=== PATIENT | female | born 1950 | race Hispanic/Latino ===

== ENCOUNTER 2019-12-24 06:25 | Observation (INO) | payer MEDICARE, OTHER ==
[2019-12-24 07:32] LABS: #Lymphocytes 2.4 thou/uL (1.20-3.40); #Monocytes 0.5 thou/uL (0.11-0.59); #Neutrophils 5.9 thou/uL (1.40-6.50); %Basophils 0.2 % (0.0-1.0); %Eosinophils 0.1 % (0.0-10.0); %Lymphocytes 27.1 % (21.0-51.0); %Monocytes 5.8 % (0.0-10.0); %Neutrophils 66.8 % (42.0-75.0); Hemoglobin 13.5 g/dL (12.0-16.0); Mean Corpuscular HGB CONC 33.9 g/dL (32.0-36.0); Mean Corpuscular Hemoglobin 32.8 pg (27.0-31.0); Mean Corpuscular Volume 96.8 fL (78.0-98.0); Mean Platelet Volume 6.9 fL (7.4-10.4); Platelet Count 333 thou/uL (130-400); RBC Distribution Width 11.9 % (11.5-14.5); White Blood Cell (WBC) Count 8.9 thou/uL (4.8-10.8)
[2019-12-24] MEDS ORDERED: Midazolam HCl 2 mg/2 ml Vial ONE (07:37)
--- NOTE | 2019-12-24 07:38 | CT ---
CT BRAIN: DAET: 12/24/2019. PROVIDED CLINICAL HISTORY: Dizziness. FINDINGS: No comparisons. The ventricular system appears normal in size and morphology. There is no evidence for intracranial hemorrhage or mass effect. The extracranial soft tissues and osseous structures dem onstrate no significant abnormality. IMPRESSION: No evidence for intracranial hemorrhage or mass effect. POS: OFF
[2019-12-24 07:51] LABS: Bilirubin Negative (Negative); Blood, Urine Negative (Negative); Clarity Clear (Clear); Glucose, Urine (Dipstick) Normal (Negative); Ketone, Urine Negative (Negative); Leukocyte Negative Leu/uL (Negative); Nitrite Negative (Negative); Protein, Urine (Dipstick) Negative (Neg-Trace); Specific Gravity, Urine 1.007 (1.002-1.036); Urobilinogen Normal mg/dL (Less than 2)
[2019-12-24 07:57] LABS: ALT (SGPT) 43 U/L (8-55); AST (SGOT) 32 U/L (5-34); Albumin 4.1 g/dL (3.4-4.8); Alkaline Phosphatase 62 U/L (40-110); Anion Gap 11 mmol/L (10-20); BUN (Urea Nitrogen) 10 mg/dL (9.8-20.1); Bilirubin, Total 0.4 mg/dL (0.2-1.2); Calc. Creatinine Clearance 0 mL/min (70-130); Calcium 8.5 mg/dL (7.8-10.44); Carbon Dioxide 25 mmol/L (23-31); Chloride 107 mmol/L (98-107); Estimated GFR-MDRD 61; Globulin 3.8 g/dL (2.4-3.5); Glucose 119 mg/dL (80-115); Potassium 3.7 mmol/L (3.5-5.1); Protein, Total 7.9 g/dL (6.0-8.3); Sodium 139 mmol/L (136-145)
--- NOTE | 2019-12-24 09:14 | PDOC.HHP ---
Hospitalist HPI - History of Present Illness Dizziness History of Present Illness: PCP: Saud Veloz The patient is a 69-year-old female with a past medical history significant for hypertension, hyperlipidemia, hypothyroidism that presents to the emergency department for the above complaint. The patient reports the acute onset of dizziness 4 days ago. She describes the dizziness as the room is spinning. She denies that she feels like she is going to "pass out". Exacerbated with moving her head, relieved by nothing. She went to [facility] at that time, was discharged home on Zofran. She reports that since then, her symptoms have improved, however, they have not resolved. She reports associated nausea and vomiting. Denies abdominal pain hematochezia, or hematemesis. She denies any recent trauma or falls. She denies first worse headache. She has no change in her home medications. She has no recent surgeries. She has no psychiatric history. She denies any recent URI symptoms, however, she does have chronic allergies. She does not take chronic NSAIDs or been on antibiotics recently. She has never had these symptoms before. Denies chest pain, heart palpitations, shortness of breath. Denies any urinary symptoms. ED Course: VITAL SIGNS Alivia Dec 24, 2019 06:26 CHALINO Jacob Daniel BP: 133/96, Pulse: 90, Resp: 22, Temp: 98.1 (Oral), O2 sat: 99 on (Room Air), Time: 12/24/2019 06:26. Medication administration: midazolam (PF) injection 2 mg IV Push Given 07:48 12/24/2019 Hospitalist ROS - Review of Systems Constitutional: denies: fever, chills Respiratory: denies: cough, shortness of breath, hemoptysis Cardiovascular: denies: chest pain, palpitations, edema Gastrointestinal: reports: nausea, vomiting. denies: abdominal pain, melena, hematochezia Genitourinary: denies: dysuria, hematuria Musculoskeletal: denies: neck pain Neurological: denies: weakness, change in speech, confusion All other systems reviewed; all pertinent +/- noted in HPI/Subj - Medication Medications: levothyroxine oral tablet : Strength - 75 mcg : ORAL Patient Dose: 50 mcg Oral once a day. losartan tablet : Strength - 25 mg : ORAL Patient Dose: 100 mg Oral once a day. pravastatin tablet : Strength - 20 mg : ORAL Patient Dose: 40 mg Oral once a day. ondansetron tablet,disintegrating : Strength - 8 mg : ORAL Patient Dose: 1 tab(s) Oral every 8 hours PRN. Allergies: Excedrin Migraine, Tylenol (tachycardia) Hospitalist History - Past Medical History Source: patient, RN notes reviewed Cardiac: reports: HTN, Hyperlipidemia Musculoskeletal: reports: Other (Osteopenia) Endocrine: reports: Hypothyroidism - Past Surgical History Past Surgical History: reports: Hysterectomy, Other (Left salpingectomy, cataract) - Social History Smoking Status: Never smoker Alcohol: reports: None Drugs: reports: none Living Situation: With Family Occupation: Lives with family. Retired. Fully independent. Activity level: independent ambulation - Exam General Appearance: NAD, awake alert Eye: PERRL, anicteric sclera Eye - other findings: No nystagmus ENT: normocephalic atraumatic, moist mucosa Neck: supple, symmetric, no JVD Heart: RRR, no murmur, no gallops, no rubs, normal peripheral pulses Respiratory: CTAB, no wheezes, no rales, no ronchi, normal chest expansion, no tachypnea Gastrointestinal: soft, non-distended, normal bowel sounds, no bruit, no guarding, no rigidity Extremities: no cyanosis, no edema Neurological: cranial nerve grossly intact Neurological - other findings: NIH 0, modified HINTS negative test of skew, negative nystagmus Musculoskeletal: normal tone, normal strength Psychiatric: normal affect, A&O x 3 (Bengali speaker) Hospitalist Results - Labs Result Diagrams: 12/24/19 07:16 12/24/19 07:16 Lab results: WBC 8.9 thou/uL (4.8-10.8) 12/24/19 07:16 Hgb 13.5 g/dL (12.0-16.0) 12/24/19 07:16 Hct 39.7 % (36.0-47.0) 12/24/19 07:16 MCV 96.8 fL (78.0-98.0) 12/24/19 07:16 Plt Count 333 thou/uL (130-400) 12/24/19 07:16 Neutrophils % 66.8 % (42.0-75.0) 12/24/19 07:16 Sodium 139 mmol/L (136-145) 12/24/19 07:16 Potassium 3.7 mmol/L (3.5-5.1) 12/24/19 07:16 Chloride 107 mmol/L (98-107) 12/24/19 07:16 Carbon Dioxide 25 mmol/L (23-31) 12/24/19 07:16 BUN 10 mg/dL (9.8-20.1) 12/24/19 07:16 Creatinine 0.91 mg/dL (0.6-1.1) 12/24/19 07:16 Glucose 119 mg/dL (80-115) H 12/24/19 07:16 Calcium 8.5 mg/dL (7.8-10.44) 12/24/19 07:16 Total Bilirubin 0.4 mg/dL (0.2-1.2) 12/24/19 07:16 AST 32 U/L (5-34) 12/24/19 07:16 ALT 43 U/L (8-55) 12/24/19 07:16 Alkaline Phosphatase 62 U/L (40-110) 12/24/19 07:16 Troponin I Less than 0.010 ng/mL (< 0.028) 12/24/19 07:16 Serum Total Protein 7.9 g/dL (6.0-8.3) 12/24/19 07:16 Albumin 4.1 g/dL (3.4-4.8) 12/24/19 07:16 Urine Ketones Negative mg/dL (Negative) 12/24/19 07:23 Urine Blood Negative (Negative) 12/24/19 07:23 Urine Nitrite Negative (Negative) 12/24/19 07:23 Ur Leukocyte Esterase Negative Shireen/uL (Negative) 12/24/19 07:23 - EKG Interpretation EK lead EKG interpreted by Emergency Department Physician at time of study, 12 lead EKG shows normal sinus rhythm, Rate (beats per minute): 68, with no ectopics, Conduction normal, ST segments normal, T waves normal, [place] normal, Clinical impression: Normal EKG. - Radiology Interpretation CT scan - head Status: report reviewed by me Additional Comment: Head CT negative, without contrast, NAD. Hospitalist H&P A/P - Problem (1) Dizziness Code(s): R42 - DIZZINESS AND GIDDINESS Status: Acute (2) HTN (hypertension) Code(s): I10 - ESSENTIAL (PRIMARY) HYPERTENSION Status: Chronic (3) HLD (hyperlipidemia) Code(s): E78.5 - HYPERLIPIDEMIA, UNSPECIFIED Status: Chronic (4) Hypothyroidism Code(s): E03.9 - HYPOTHYROIDISM, UNSPECIFIED Status: Chronic (5) Osteopenia Code(s): M85.80 - OTH DISRD OF BONE DENSITY AND STRUCTURE, UNSPECIFIED SITE Status: Chronic - Plan Plan: 69/female with PMH hypertension, HLD, hypothyroidism presents to the emergency department for dizziness x4 days. Admit to telemetry floor, observation status. Expected length of stay less than 2 midnights. #Dizziness Upon exam, symptoms resolved with meds benzodiazepine. NIH 0, modified HINTS exam no nystagmus, negative test of skew. We will order MRI, carotid Doppler, echocardiogram. Consult neurology and physical therapy. Give full dose aspirin now. Continue baby aspirin. Neuro checks, permissive hypertension. #Hypertension Presented stable BP, stable HR. Home dose losartan. We will restart home medication when appropriate. Continue to monitor BP. #Hyperlipidemia We will obtain FLP. We will start high intensity statin for now. #Hypothyroidism We will check TSH. Home dose levothyroxine will be restarted. #Osteopenia Stable. No medications. SCDs for DVT prophylaxis. No GI prophylaxis. Full code. Discussed case with Dr. Espinosa.
[2019-12-24] MEDS ORDERED: hydrALAZINE 20 MG/ML VIAL SLOW IVP PRN (11:37)
[2019-12-24] MEDS ORDERED: Labetalol HCl 100 MG/20 ML VIAL SLOW IVP PRN (11:37)
[2019-12-24] MEDS ORDERED: Meclizine HCl 25 MG TAB PO PRN (11:41)
[2019-12-24] MEDS ORDERED: Aspirin 325 mg Enteric Coated Tablet PO SCH (11:45)
[2019-12-24 11:49] VITALS: BMI 25.4
[2019-12-24] MEDS ORDERED: Losartan 25 MG TAB PO SCH (12:30)
--- NOTE | 2019-12-24 15:29 | MRI ---
MRI BRAIN WITHOUT CONTRAST: HISTORY: Dizziness CORRELATION: CT scan from 12/24/2019. FINDINGS: No restricted diffusion is seen. The ventricular size is appropriate and the basilar cisterns are pat ent. No evidence of acute infarct, hemorrhage, midline shift or abnormal extra-axial fluid collections is seen. The visualized paranasal sinuses and mastoid air cells are well-aerated. IMPRESSION: No evidence of acute intracranial process.
[2019-12-24 17:16] LABS: SARS-CoV-2 MS2 Positive; SARS-CoV-2 N Gene Negative; SARS-CoV-2 S Gene Negative; SARS-CoV-2 by NAA Not Detected (NotDetected); SARS-CoV-2 orf1ab Negative
--- NOTE | 2019-12-24 17:46 | CON ---
NEUROLOGY CONSULTATION DATE OF CONSULTATION: 12/24/2019 REASON FOR CONSULTATION: Dizziness, rule out posterior circulation stroke. HISTORY OF PRESENT ILLNESS: Ms. Velasquez Veloz is a 69-year-old female with medical history significant for hypertension, hyperlipidemia, hypothyroidism, presented to the emergency department with acute onset of dizziness since the last 4 days. Per the patient, she describes the dizziness as the room spinning in front of her eyes and she is going to pass out. The dizziness is exacerbated by movement, but also present at rest. She went to [facility] and discharged with Zofran and was diagnosed with benign positional vertigo. Her symptoms did not resolve. She decided to come to the hospital for further evaluation. She also reported nausea and vomiting. The patient denies focal weakness, focal paresthesias, headache, chest pain, or abdominal pain. There is no recent sick contact or exposure to COVID. REVIEW OF SYSTEMS Constitutional: denies: fever, chills Respiratory: denies: cough, shortness of breath, hemoptysis Cardiovascular: denies: chest pain, palpitations, edema Gastrointestinal: reports: nausea, vomiting. denies: abdominal pain, melena, hematochezia Genitourinary: denies: dysuria, hematuria Musculoskeletal: denies: neck pain Neurological: denies: weakness, change in speech, confusion All other systems reviewed; all pertinent +/- noted in HPI/Subj MEDICATIONS: 1. Levothyroxine 50 mcg once daily. 2. Losartan 100 mg once a day. 3. Pravastatin 40 mg once daily. 4. Ondansetron 8 mg every 8 hours p.r.n. ALLERGIES: EXCEDRIN MIGRAINE, TYLENOL. PAST MEDICAL HISTORY: Hypertension, hyperlipidemia, osteoporosis, hypothyroidism. PAST SURGICAL HISTORY: Hysterectomy, left salpingectomy, cataract surgery. SOCIAL HISTORY: The patient lives with family. Retired, fully independent. Denies smoking, alcohol, or illegal drug use. VITAL SIGNS [facility] Dec 24, 2019 06:26 CHALINO Jacob Daniel BP: 133/96, Pulse: 90, Resp: 22, Temp: 98.1 (Oral), O2 sat: 99 on (Room Air), Time: 12/24/2019 PHYSICAL EXAMINATION: General Appearance: NAD, awake alert Eye: PERRL, anicteric sclera Eye - other findings: No nystagmus ENT: normocephalic atraumatic, moist mucosa Neck: supple, symmetric, no JVD Heart: RRR, no murmur, no gallops, no rubs, normal peripheral pulses Respiratory: CTAB, no wheezes, no rales, no ronchi, normal chest expansion, no tachypnea Gastrointestinal: soft, non-distended, normal bowel sounds, no bruit, no guarding, no rigidity Extremities: no cyanosis, no edema Neurological: cranial nerve grossly intact Neurological - Mental status, the patient is alert and oriented to person, place, and time. Speech is clear. Motor, muscle tone and bulk are normal. Strength 5/5 bilaterally. Sensory intact. Gait deferred due to the patient's safety reasons. Cerebellar, finger-nose testing intact. Cranial nerves 2 through 12 intact. The patient speaks Vietnamese. History is taken with the help of the daughter. DATA REVIEWED: I reviewed the labs which were essentially unremarkable. EKG showed normal sinus rhythm and head CT did not reveal any acute intracranial pathology. Lab results: WBC 8.9 thou/uL (4.8-10.8) 12/24/19 07:16 Hgb 13.5 g/dL (12.0-16.0) 12/24/19 07:16 Hct 39.7 % (36.0-47.0) 12/24/19 07:16 MCV 96.8 fL (78.0-98.0) 12/24/19 07:16 Plt Count 333 thou/uL (130-400) 12/24/19 07:16 Neutrophils % 66.8 % (42.0-75.0) 12/24/19 07:16 Sodium 139 mmol/L (136-145) 12/24/19 07:16 Potassium 3.7 mmol/L (3.5-5.1) 12/24/19 07:16 Chloride 107 mmol/L (98-107) 12/24/19 07:16 Carbon Dioxide 25 mmol/L (23-31) 12/24/19 07:16 BUN 10 mg/dL (9.8-20.1) 12/24/19 07:16 Creatinine 0.91 mg/dL (0.6-1.1) 12/24/19 07:16 Glucose 119 mg/dL (80-115) H 12/24/19 07:16 Calcium 8.5 mg/dL (7.8-10.44) 12/24/19 07:16 Total Bilirubin 0.4 mg/dL (0.2-1.2) 12/24/19 07:16 AST 32 U/L (5-34) 12/24/19 07:16 ALT 43 U/L (8-55) 12/24/19 07:16 Alkaline Phosphatase 62 U/L (40-110) 12/24/19 07:16 Troponin I Less than 0.010 ng/mL (< 0.028) 12/24/19 07:16 Serum Total Protein 7.9 g/dL (6.0-8.3) 12/24/19 07:16 Albumin 4.1 g/dL (3.4-4.8) 12/24/19 07:16 Urine Ketones Negative mg/dL (Negative) 12/24/19 07:23 Urine Blood Negative (Negative) 12/24/19 07:23 Urine Nitrite Negative (Negative) 12/24/19 07:23 Ur Leukocyte Esterase Negative Shireen/uL (Negative) 12/24/19 07:23 - EKG Interpretation EKG: Clinical impression: Normal EKG. - Radiology Interpretation CT scan - head Status: report reviewed by me Additional Comment: Head CT negative ASSESSMENT AND PLAN: (1) Dizziness Code(s): R42 - DIZZINESS AND GIDDINESS Status: Acute (2) HTN (hypertension) Code(s): I10 - ESSENTIAL (PRIMARY) HYPERTENSION Status: Chronic (3) HLD (hyperlipidemia) Code(s): E78.5 - HYPERLIPIDEMIA, UNSPECIFIED Status: Chronic (4) Hypothyroidism Code(s): E03.9 - HYPOTHYROIDISM, UNSPECIFIED Status: Chronic (5) Osteopenia Code(s): M85.80 - OT DISRD OF BONE DENSITY AND STRUCTURE, UNSPECIFIED SITE Status: Chronic Ms. Velasquez Veloz is a 69-year-old female with medical history significant for hypertension, hyperlipidemia, hypothyroidism, presented with dizziness for [address] negative for acute intracranial pathology. MRI of the brain reviewed and was negative for acute stroke. Carotid Doppler and 2D echo pending. Continue aspirin and high intensity statin for secondary stroke prevention. MRI is negative, so strict control of blood pressure and blood glucose. Neuro checks every 4 hours. telemetry. Consider meclizine p.r.n. for vertigo. PT/OT/Speech. Deep venous thrombosis prophylaxis. Continue home medications. Continue medical management per primary team. We will continue to follow. Thank you for the consult. Job ID: [id number] MTDD
--- NOTE | 2019-12-24 18:18 | PDOC.BPN ---
- Brief Progress Note Encounter Date: 12/24/19 I have seen the patient with Naga Barragan NP and agree with his assessment and plan. 69 yo female with pmh of htn, t2dm, and hypothyroid presenting with dizziness for 4 days. MRI head negative for acute infarction. Improvement in symptoms with antivert. Will obs overnight and anticipate discharge tomorrow morning
[2019-12-24] MEDS ORDERED: Atorvastatin Calcium 40 MG TAB PO SCH (21:00)
[2019-12-24] MEDS ORDERED: Ibuprofen 200 MG TAB PO PRN (21:44)
[2019-12-25 04:57] LABS: #Lymphocytes 2.7 thou/uL (1.20-3.40); #Monocytes 0.7 thou/uL (0.11-0.59); %Basophils 0.3 % (0.0-1.0); %Eosinophils 0.1 % (0.0-10.0); %Lymphocytes 31.9 % (21.0-51.0); %Neutrophils 59.7 % (42.0-75.0); Hemoglobin 13.4 g/dL (12.0-16.0); Mean Corpuscular HGB CONC 33.1 g/dL (32.0-36.0); Mean Corpuscular Hemoglobin 31.6 pg (27.0-31.0); Mean Corpuscular Volume 95.4 fL (78.0-98.0); Mean Platelet Volume 7.2 fL (7.4-10.4); Platelet Count 335 thou/uL (130-400); RBC Distribution Width 12.1 % (11.5-14.5); Red Blood Cell (RBC) Count 4.24 mill/uL (4.20-5.40); White Blood Cell (WBC) Count 8.4 thou/uL (4.8-10.8)
[2019-12-25 05:23] LABS: Anion Gap 15 mmol/L (10-20); BUN (Urea Nitrogen) 15 mg/dL (9.8-20.1); Calc. Creatinine Clearance 65 mL/min (70-130); Calcium 8.8 mg/dL (7.8-10.44); Carbon Dioxide 22 mmol/L (23-31); Cardiac Risk 3.8 (Less than 4.5); Chloride 107 mmol/L (98-107); Cholesterol 171 mg/dl (< 200 Desired); Estimated GFR-MDRD 72; Glucose 111 mg/dL (80-115); HDL Cholesterol 45 mg/dL (>60 Neg Risk); LDL Cholesterol, Calculated 104 mg/dL; Potassium 3.7 mmol/L (3.5-5.1); Sodium 140 mmol/L (136-145); Triglycerides 109 mg/dL (Less than 150)
[2019-12-25] MEDS ORDERED: Levothyroxine Sodium 50 MCG TAB PO SCH ×2 (06:00)
--- NOTE | 2019-12-25 08:35 | ULT ---
EXAM: Carotid ultrasound HISTORY: Stroke/TIA COMPARISON: None TECHNIQUE: Multiplanar grayscale and color Doppler images were obtained in a carotid ultrasound. Spec tral analysis of the Doppler waveforms were performed. FINDINGS: No significant plaque is visualized in either internal carotid artery. No significant plaque is seen in either common carotid artery. The Doppler waveforms are normal in the visualized vessels. Peak systolic velocity in the right internal carotid artery 72 cm/s. Peak systolic velocity in the right common carotid artery 65 cm/s. The right ICA/CCA ratio is 1.1. Peak systolic velocity in the left internal carotid artery 42 cm/s. Peak systolic velocity in the left common carotid artery 61 cm/s. The left ICA/CCA ratio is 0.7. Both vertebral arteries demonstrate antegrade flow without focal stenosis IMPRESSION: No evidence of hemodynamically significant stenosis.
[2019-12-25] MEDS ORDERED: Losartan 25 MG TAB PO SCH ×2 (09:00)
[2019-12-25] MEDS ORDERED: Aspirin 81 mg Enteric Coated Tablet PO SCH (09:00)
--- NOTE | 2019-12-25 13:06 | PDOC.NEUPN ---
- Subjective Encounter Date: 12/25/19 Subjective: Patient feels better today. Speaks Togolese only. Daughter helped with interpretation. - Objective Vital Signs & Weight: Vital Signs (12 hours) Temp Pulse Resp BP BP Pulse Ox 12/25/19 11:30 98.1 F 64 16 137/76 99 12/25/19 08:50 63 119/64 12/25/19 07:31 98.1 F 63 16 105/56 L 96 12/25/19 04:00 98.4 F 78 16 115/67 96 Weight Admit Weight 134 lb 11.2 oz Weight 134 lb 11.2 oz I&O: 12/24/19 12/25/19 12/26/19 06:59 06:59 06:59 Intake Total 480 240 Balance 480 240 Result Diagrams: 12/25/19 04:23 12/25/19 04:23 Radiology Reviewed by me: Yes EKG Reviewed by me: Yes ROS - Review of Systems Constitutional: denies: fever, chills, sweats, weakness, malaise, other Eyes: denies: pain, vision change, conjunctivae inflammation, eyelid inflammation, redness, other ENT: denies: ear pain, ear discharge, nose pain, nose discharge, nose congesti on, mouth pain, mouth swelling, throat pain, throat swelling, other Respiratory: denies: cough, dry, shortness of breath, hemoptysis, SOB with excertion, pleuritic pain, sputum, wheezing, other Cardiovascular: denies: no pertinent history, AFIB, CAD, CHF, HTN, [place], Syncope, Hyperlipidemia, Mitral valve stenosis, Aortic stenosis, Valve insufficiency, Pulmonary hypertension, Other Gastrointestinal: denies: nausea, vomiting, abdominal pain, diarrhea, constipation, melena, hematochezia, other Genitourinary: denies: dysuria, frequency, incontinence, hematuria, retention, other Musculoskeletal: denies: neck pain, shoulder pain, arm pain, back pain, hand pain, leg pain, foot pain, other Skin: denies: rash, lesions, zaid, bruising, other Neurological: denies: weakness, numbness, incoordination, change in speech, confusion, seizures, other - Medication Medications: Active Medications Generic Name Dose Route Start Last Admin Trade Name Freq PRN Reason Stop Dose Admin Aspirin 81 mg 12/25/19 09:00 12/25/19 08:55 Aspirin 81 Mg Enteric Coated Tablet PO 81 mg DAILY CANDACE Administration Atorvastatin Calcium 40 mg 12/24/19 21:00 12/24/19 20:02 Atorvastatin Calcium 40 Mg Tab PO 40 mg HS CANDACE Administration Levothyroxine Sodium 50 mcg 12/25/19 06:00 12/25/19 06:31 Levothyroxine Sodium 50 Mcg Tab PO 50 mcg 0600 CANDACE Administration Losartan Potassium 100 mg 12/25/19 09:00 12/25/19 08:55 Losartan 25 Mg Tab PO 100 mg QAM CANDACE Administration Sodium Chloride 10 ml 12/24/19 11:37 12/24/19 20:02 Flush - Normal Saline 10 Ml Syringe IVF 10 ml PRN PRN Administration Saline Flush - Exam General Appearance: awake alert Eye: PERRL ENT: normocephalic atraumatic Neck: supple Respiratory: CTAB Cardiovascular: RRR Gastrointestinal: soft Extremities: no cyanosis Skin: normal turgor Neurological: CN's grossly intact, normal sensation to touch, no weakness, no focal deficits Musculoskeletal: normal tone, normal strength, no muscle wasting PSYCH: normal affect, normal behavior, A&O x 3 Results - Labs Result Diagrams: 12/25/19 04:23 12/25/19 04:23 Lab results: WBC 8.4 thou/uL (4.8-10.8) 12/25/19 04:23 Hgb 13.4 g/dL (12.0-16.0) 12/25/19 04:23 Hct 40.5 % (36.0-47.0) 12/25/19 04:23 MCV 95.4 fL (78.0-98.0) 12/25/19 04:23 Plt Count 335 thou/uL (130-400) 12/25/19 04:23 Neutrophils % 59.7 % (42.0-75.0) 12/25/19 04:23 Sodium 140 mmol/L (136-145) 12/25/19 04:23 Potassium 3.7 mmol/L (3.5-5.1) 12/25/19 04:23 Chloride 107 mmol/L (98-107) 12/25/19 04:23 Carbon Dioxide 22 mmol/L (23-31) L 12/25/19 04:23 BUN 15 mg/dL (9.8-20.1) 12/25/19 04:23 Creatinine 0.79 mg/dL (0.6-1.1) 12/25/19 04:23 Glucose 111 mg/dL (80-115) 12/25/19 04:23 Calcium 8.8 mg/dL (7.8-10.44) 12/25/19 04:23 Total Bilirubin 0.4 mg/dL (0.2-1.2) 12/24/19 07:16 AST 32 U/L (5-34) 12/24/19 07:16 ALT 43 U/L (8-55) 12/24/19 07:16 Alkaline Phosphatase 62 U/L (40-110) 12/24/19 07:16 Troponin I Less than 0.010 ng/mL (< 0.028) 12/24/19 07:16 Serum Total Protein 7.9 g/dL (6.0-8.3) 12/24/19 07:16 Albumin 4.1 g/dL (3.4-4.8) 12/24/19 07:16 Urine Ketones Negative mg/dL (Negative) 12/24/19 07:23 Urine Blood Negative (Negative) 12/24/19 07:23 Urine Nitrite Negative (Negative) 12/24/19 07:23 Ur Leukocyte Esterase Negative Shireen/uL (Negative) 12/24/19 07:23 - Radiology Interpretation MRI - head Additional Comment: Negative for acute intracranial process PN A/P (1) Dizziness Code(s): R42 - DIZZINESS AND GIDDINESS Status: Acute (2) HLD (hyperlipidemia) Code(s): E78.5 - HYPERLIPIDEMIA, UNSPECIFIED Status: Chronic (3) HTN (hypertension) Code(s): I10 - ESSENTIAL (PRIMARY) HYPERTENSION Status: Chronic (4) Hypothyroidism Code(s): E03.9 - HYPOTHYROIDISM, UNSPECIFIED Status: Chronic (5) Osteopenia Code(s): M85.80 - OT DISRD OF BONE DENSITY AND STRUCTURE, UNSPECIFIED SITE Status: Chronic - Plan Daily Plan: PT/OT 69 year old consulted for dizziness 4 days prior to admission. No focal deficits on exam. Imaging negative for stroke or bleed. Most likely vertigo. MRI brain reviewed and was negative for acute intracranial process. Neurochecks every 4 hours. Continue home medications. Continue symptomatic treatment of vertigo per primary team. Continue PT/OT Vestibular PT and ENT input as outpatient Plan discussed with the patient and the daughter.
[2019-12-25 15:40] VITALS: TEMP 98
[2019-12-25 16:38] VITALS: BP 139/70
--- NOTE | 2019-12-26 03:46 | DIS ---
DATE OF ADMISSION: 12/24/2019 DATE OF DISCHARGE: 12/25/2019 DISCHARGE DIAGNOSES: Vertigo HISTORY: Patient is a 69-year-old female with past medical history of hypertension, hyperlipidemia, hypothyroidism, who presented to the emergency department for concerns of dizziness. She reports dizziness started 4 days prior. She described as the room was spinning around her. She states that those turns when she has dizziness, she feels like she is going to pass out. Her symptoms are made worse with moving her head. Nothing has provided her relief. She was recently seen at another facility earlier in the week and given Zofran and discharged home. She reports no improvement with the Zofran. The patient was admitted for evaluation of CVA. MRI was obtained of the brain, which showed no evidence of acute intracranial process. Echo was obtained, which showed an ejection fraction of 55% to 60%. Neurology was consulted and imaging reviewed and agreed with symptomatic treatment of vertigo. PHYSICAL EXAMINATION: GENERAL: On day of discharge, patient was resting comfortably on bed. She is alert and oriented. No focal neuro deficits. HEENT: Normocephalic, atraumatic. HEART: She had regular rate and rhythm. LUNGS: Clear to auscultation bilaterally. ABDOMEN: Soft, nontender, nondistended. EXTREMITIES: She had no edema of her bilateral lower extremities. ACTIVITIES: As tolerated. DIET: Heart healthy diet. DISCHARGE MEDICATIONS: Patient was started meclizine 25 mg p.o. q.8 hours p.r.n. She was continued on: 1. Pravastatin 40 mg. 2. Fosamax 70 mg. 3. Losartan 100 mg every day. 4. Synthroid 50 mcg a day. FOLLOWUP: Patient was instructed to follow up with her PCP within the week and also referral for Vestibular Rehab was sent. Patient was stable for discharge and discharged to home. Return precautions were given. Discharge time spent on the care of the patient was greater than 30 minutes. Job ID: [id number] [facility]
== END 2019-12-25 19:10 | disposition home or self-care (01) ==
LOC: ERS 06:25 → 2SW 11:33
PROVIDERS: ADMIT Family Medicine; ATTEND Family Medicine
DX: R42 Dizziness and giddiness (principal); I10 Essential (primary) hypertension; E78.5 Hyperlipidemia, unspecified; E03.9 Hypothyroidism, unspecified; E78.00 Pure hypercholesterolemia, unspecified; M81.0 Age-related osteoporosis without current pathological fracture; M85.80 Other specified disorders of bone density and structure, unspecified site; E11.9 Type 2 diabetes mellitus without complications; Z79.83 Long term (current) use of bisphosphonates; Z79.899 Other long term (current) drug therapy; Z88.6 Allergy status to analgesic agent; Z88.8 Allergy status to other drugs, medicaments and biological substances; Z20.828 Contact with and (suspected) exposure to other viral communicable diseases
CPT/HCPCS: 70450; 70551; 80048; 80053; 80061; 81003; 82607; 82746; 84443; 84484; 85025 ×2; 93005; 93306; 93880; 96374; 97116; 97139 ×4; 99285; U0003; 36415; 87635; G0378; J2250

== ENCOUNTER 2020-09-21 06:30 | Emergency (ER) | payer MEDICARE ==
[2020-09-21 06:55] LABS: Bilirubin Negative (Negative); Blood, Urine 2+ (Negative); Clarity Turbid (Clear); Glucose, Urine (Dipstick) Normal (Negative); Ketone, Urine Negative (Negative); Leukocyte 500 Leu/uL (Negative); Nitrite Negative (Negative); Protein, Urine (Dipstick) 10 mg/dL (Neg-Trace); RBC/HPF Greater than 50 HPF (0-3); Specific Gravity, Urine 1.022 (1.002-1.036); Squamous Epithelial 0-3 HPF (0-3); Urobilinogen Normal mg/dL (Less than 2); WBC/HPF Greater than 50 HPF (0-3); pH, Urine 5.5 (5.0-9.0)
[2020-09-21 06:59] LABS: Bacteria/HPF 1+ HPF (None Seen)
[2020-09-21 07:13] LABS: #Basophils 0.1 thou/uL (0.0-0.2); #Lymphocytes 3.1 thou/uL (1.20-3.40); #Neutrophils 11.5 thou/uL (1.40-6.50); %Basophils 0.4 % (0.0-1.0); %Eosinophils 0.1 % (0.0-10.0); %Lymphocytes 19.7 % (21.0-51.0); %Monocytes 6.4 % (0.0-10.0); %Neutrophils 73.5 % (42.0-75.0); Hemoglobin 13.5 g/dL (12.0-16.0); Mean Corpuscular HGB CONC 33.8 g/dL (32.0-36.0); Mean Corpuscular Hemoglobin 32.6 pg (27.0-31.0); Mean Corpuscular Volume 96.5 fL (78.0-98.0); Mean Platelet Volume 6.8 fL (7.4-10.4); Platelet Count 317 thou/uL (130-400); RBC Distribution Width 12.3 % (11.5-14.5); Red Blood Cell (RBC) Count 4.13 mill/uL (4.20-5.40); White Blood Cell (WBC) Count 15.7 thou/uL (4.8-10.8)
[2020-09-21 08:09] LABS: ALT (SGPT) 37 U/L (8-55); AST (SGOT) 34 U/L (5-34); Alkaline Phosphatase 61 U/L (40-110); Anion Gap 13 mmol/L (10-20); BUN (Urea Nitrogen) 18 mg/dL (9.8-20.1); Bilirubin, Total 0.5 mg/dL (0.2-1.2); Calc. Creatinine Clearance 0 mL/min (70-130); Calcium 8.8 mg/dL (7.8-10.44); Carbon Dioxide 22 mmol/L (23-31); Chloride 108 mmol/L (98-107); Globulin 3.8 g/dL (2.4-3.5); Glucose 128 mg/dL (80-115); Potassium 4.4 mmol/L (3.5-5.1); Protein, Total 7.8 g/dL (5.8-8.1); Sodium 139 mmol/L (136-145)
== END 2020-09-21 08:20 | disposition home or self-care (01) ==
LOC: ERS 06:30
DX: N30.00 Acute cystitis without hematuria (principal); I10 Essential (primary) hypertension; E03.9 Hypothyroidism, unspecified; E78.00 Pure hypercholesterolemia, unspecified; M81.0 Age-related osteoporosis without current pathological fracture; Z79.899 Other long term (current) drug therapy
CPT/HCPCS: 36415; 80053; 81003; 81015; 85025; 87077; 87086; 87186; 94760

== ENCOUNTER 2020-09-24 05:29 | Emergency (ER) | payer MEDICARE ==
[2020-09-24] MEDS ORDERED: diphenhydrAMINE 50 MG/ML VIAL ONE (06:00)
[2020-09-24] MEDS ORDERED: Metoclopramide HCl 10 MG/2 ML VIAL ONE (06:00)
[2020-09-24] MEDS ORDERED: Metoclopramide 10 MG/10 ML UDCUP ONE (06:00)
[2020-09-24 06:21] LABS: #Basophils 0.1 thou/uL (0.0-0.2); #Lymphocytes 2.8 thou/uL (1.20-3.40); #Monocytes 0.5 thou/uL (0.11-0.59); #Neutrophils 4.5 thou/uL (1.40-6.50); %Basophils 1.1 % (0.0-1.0); %Eosinophils 0.1 % (0.0-10.0); %Lymphocytes 35.7 % (21.0-51.0); %Monocytes 6.1 % (0.0-10.0); Hemoglobin 13.5 g/dL (12.0-16.0); Mean Corpuscular HGB CONC 33.7 g/dL (32.0-36.0); Mean Corpuscular Hemoglobin 32.8 pg (27.0-31.0); Mean Corpuscular Volume 97.6 fL (78.0-98.0); Mean Platelet Volume 6.9 fL (7.4-10.4); Platelet Count 331 thou/uL (130-400); RBC Distribution Width 12.2 % (11.5-14.5); White Blood Cell (WBC) Count 7.9 thou/uL (4.8-10.8)
[2020-09-24 06:40] LABS: ALT (SGPT) 46 U/L (8-55); AST (SGOT) 47 U/L (5-34); Albumin 4.1 g/dL (3.4-4.8); Alkaline Phosphatase 59 U/L (40-110); Anion Gap 13 mmol/L (10-20); BUN (Urea Nitrogen) 14 mg/dL (9.8-20.1); Bilirubin, Total 0.4 mg/dL (0.2-1.2); Calc. Creatinine Clearance 0 mL/min (70-130); Calcium 8.4 mg/dL (7.8-10.44); Carbon Dioxide 21 mmol/L (23-31); Chloride 106 mmol/L (98-107); Globulin 4.1 g/dL (2.4-3.5); Glucose 134 mg/dL (80-115); Lipase 37 U/L (8-78); Potassium 4.9 mmol/L (3.5-5.1); Protein, Total 8.2 g/dL (5.8-8.1); Sodium 135 mmol/L (136-145)
== END 2020-09-24 07:55 | disposition home or self-care (01) ==
LOC: ERS 05:29
DX: R51.9 Headache, unspecified (principal); R11.2 Nausea with vomiting, unspecified; R19.7 Diarrhea, unspecified; I10 Essential (primary) hypertension; E78.00 Pure hypercholesterolemia, unspecified; E03.9 Hypothyroidism, unspecified; M81.0 Age-related osteoporosis without current pathological fracture; Z79.899 Other long term (current) drug therapy
CPT/HCPCS: 70450; 71045; 80053; 83690; 84484; 85025; 93005; 96365; 96375; J1200; J2765

== ENCOUNTER 2021-05-05 21:03 | Emergency (ER) | payer MEDICARE ==
[2021-05-05 22:05] LABS: #Lymphocytes 4.1 thou/uL (1.20-3.40); #Monocytes 0.8 thou/uL (0.11-0.59); #Neutrophils 3.8 thou/uL (1.40-6.50); %Basophils 0.4 % (0.0-1.0); %Lymphocytes 46.9 % (21.0-51.0); %Neutrophils 43.8 % (42.0-75.0); Hemoglobin 13.5 g/dL (12.0-16.0); Mean Corpuscular HGB CONC 34.2 g/dL (32.0-36.0); Mean Corpuscular Hemoglobin 34.3 pg (27.0-31.0); Mean Platelet Volume 6.4 fL (7.4-10.4); Platelet Count 318 thou/uL (130-400); RBC Distribution Width 12.7 % (11.5-14.5); Red Blood Cell (RBC) Count 3.94 mill/uL (4.20-5.40); White Blood Cell (WBC) Count 8.7 thou/uL (4.8-10.8)
[2021-05-05 22:34] LABS: ALT (SGPT) 43 U/L (8-55); AST (SGOT) 47 U/L (5-34); Alkaline Phosphatase 61 U/L (40-110); Anion Gap 14 mmol/L (10-20); BUN (Urea Nitrogen) 16 mg/dL (9.8-20.1); Bilirubin, Total 0.3 mg/dL (0.2-1.2); Calc. Creatinine Clearance 0 mL/min (70-130); Calcium 8.9 mg/dL (7.8-10.44); Carbon Dioxide 22 mmol/L (23-31); Chloride 106 mmol/L (98-107); Globulin 4.1 g/dL (2.4-3.5); Glucose 120 mg/dL (80-115); Potassium 3.7 mmol/L (3.5-5.1); Protein, Total 8.1 g/dL (5.8-8.1); Sodium 138 mmol/L (136-145)
== END 2021-05-05 23:08 | disposition home or self-care (01) ==
LOC: ERS 21:03
DX: R07.89 Other chest pain (principal); R42 Dizziness and giddiness; I10 Essential (primary) hypertension; E03.9 Hypothyroidism, unspecified; Z79.899 Other long term (current) drug therapy; M81.0 Age-related osteoporosis without current pathological fracture
CPT/HCPCS: 36415; 80053; 84443; 84484; 85025; 93005

== ENCOUNTER 2022-07-06 09:47 | Outpatient (CLI) | payer MEDICARE ==
[2022-07-06 11:39] LABS: Anion Gap 12 mmol/L (10-20); BUN (Urea Nitrogen) 16 mg/dL (9.8-20.1); Calc. Creatinine Clearance 0 mL/min (70-130); Calcium 8.9 mg/dL (7.8-10.44); Carbon Dioxide 21 mmol/L (23-31); Chloride 111 mmol/L (98-107); Estimated GFR 72; Glucose 115 mg/dL (83-110); Potassium 4.6 mmol/L (3.5-5.1); Sodium 139 mmol/L (136-145)
== END 2022-07-06 09:48 | disposition home or self-care (01) ==
LOC: LABBT 09:47
PROVIDERS: ATTEND Neurological Surgery
DX: Z01.812 Encounter for preprocedural laboratory examination (principal); I67.1 Cerebral aneurysm, nonruptured
CPT/HCPCS: 80048

== ENCOUNTER → 2022-07-11 | Day surgery (SDC) | payer MEDICARE ==
[2022-07-10 09:43] VITALS: BMI 23.3
[~2022-07-11] MED LIST: Heparin 10,000 UNITS/ 10 ML VIAL ONE; Lidocaine 1% (PF) 30 ML VIAL ONE
== END | disposition home or self-care (01) ==
LOC: CCL 07:40
PROVIDERS: ATTEND Neurological Surgery
DX: I67.1 Cerebral aneurysm, nonruptured (principal); Z53.8 Procedure and treatment not carried out for other reasons; Z79.83 Long term (current) use of bisphosphonates; Z79.890 Hormone replacement therapy; Z79.899 Other long term (current) drug therapy; Z88.6 Allergy status to analgesic agent; Z88.8 Allergy status to other drugs, medicaments and biological substances
CPT/HCPCS: J1644; J2001